=== PATIENT | male | born 1990 | race American Indian/Alaskan Native ===

== ENCOUNTER 2021-12-14 07:20 | Emergency (ER) | payer OTHER ==
[2021-12-14 08:36] LABS: Basophils % (Auto) 0.3 % (0.0-1.8); Eosinophils % (Auto) 0.6 % (0.0-4.3); Hematocrit 48.4 % (35.5-45.6); Hemoglobin 16.2 gm/dl (11.8-15.2); Lymphocytes # (Auto) 1.8 K/mm3 (1.2-5.4); Lymphocytes % (Auto) 21.9 % (13.4-35.0); Mean Corpuscular HGB Conc 34 % (32-34); Mean Corpuscular Volume 83 fl (84-94); Monocytes # (Auto) 0.7 K/mm3 (0.0-0.8); Monocytes % (Auto) 8.7 % (0.0-7.3); Platelet Count 207 K/mm3 (140-440); Red Blood Count 5.81 M/mm3 (3.65-5.03); Red Cell Distribution Width 13.3 % (13.2-15.2)
[2021-12-14 08:53] LABS: Alanine Aminotransferase 44 units/L (7-56); BUN/Creatinine Ratio 11; Blood Urea Nitrogen 14 mg/dL (9-20); Calcium 9.6 mg/dL (8.4-10.2); Hemolysis Index 19
[2021-12-14 09:04] LABS: Bilirubin,Urine NEG (Negative); Blood,Urine SM (Negative); Color,Urine Yellow (Yellow); Urobilinogen,Urine < 2.0 mg/dL (<2.0)
[2021-12-14 09:12] LABS: Mucus,Urine 1+ /HPF
--- NOTE | 2021-12-14 14:11 | Emergency Department Report ---
ED General Adult HPI - General Chief complaint: Abdominal Pain Stated complaint: AB PAIN/NAUSEA Time Seen by Provider: 12/14/21 13:39 Source: patient Mode of arrival: Ambulatory Limitations: No Limitations - History of Present Illness Initial comments: 31-year-old male patient presents with complaints of epigastric and right upper quadrant pain for the past 2 days. Pain is constant and moderate. He denies any vomiting but admits to nausea. No diarrhea/melena, fever/chills/sweats, cough, shortness of breath, or chest pain. Patient states he has been evaluated by his PCP for thyroid disease. He also states he was seen 1 week ago in the ED for anxiety and chest pain and states everything was normal at that time. Pain does not worsen with eating or drinking per patient. Nothing improves pain per patient Radiation: non-radiation Severity scale (0 -10): 6 Quality: aching - Related Data Previous Rx's Medication Instructions Recorded Last Taken Type Dicyclomine [Bentyl] 20 mg PO QID PRN #40 tablet 12/14/21 Unknown Rx Famotidine [Pepcid] 20 mg PO BID 10 Days #20 tablet 12/14/21 Unknown Rx Ondansetron [Zofran Odt] 4 mg PO Q8HR PRN #12 tab.rapdis 12/14/21 Unknown Rx Allergies Allergy/AdvReac Type Severity Reaction Status Date / Time tramadol Allergy Unknown Verified 12/14/21 08:03 ED Review of Systems ROS: Stated complaint: AB PAIN/NAUSEA Other details as noted in HPI Constitutional: denies: chills, fever Eyes: denies: eye pain, eye discharge, vision change ENT: denies: ear pain, throat pain Respiratory: denies: cough, shortness of breath, wheezing Cardiovascular: denies: chest pain, palpitations Endocrine: no symptoms reported Gastrointestinal: abdominal pain, nausea. denies: vomiting, diarrhea, constipation, hematemesis, melena, hematochezia Genitourinary: denies: urgency, dysuria Musculoskeletal: denies: back pain, joint swelling, arthralgia Skin: denies: rash, lesions Neurological: denies: headache, weakness, paresthesias Hematological/Lymphatic: denies: easy bleeding, easy bruising, swollen glands ED Past Medical Hx - Past Medical History Previous Medical History?: Yes Additional medical history: thyroid - Surgical History Past Surgical History?: No - Medications Home Medications: Home Medications Medication Instructions Recorded Confirmed Last Taken Type Dicyclomine [Bentyl] 20 mg PO QID PRN #40 tablet 12/14/21 Unknown Rx Famotidine [Pepcid] 20 mg PO BID 10 Days #20 tablet 12/14/21 Unknown Rx Ondansetron [Zofran Odt] 4 mg PO Q8HR PRN #12 tab.rapdis 12/14/21 Unknown Rx ED Physical Exam - General Limitations: No Limitations General appearance: alert, in no apparent distress - Head Head exam: Present: atraumatic, normocephalic - Eye Eye exam: Present: normal appearance. Absent: scleral icterus - Respiratory Respiratory exam: Present: normal lung sounds bilaterally. Absent: respiratory distress - Cardiovascular Cardiovascular Exam: Present: regular rate, normal rhythm - GI/Abdominal GI/Abdominal exam: Present: soft, tenderness (mild RUQ), normal bowel sounds. Absent: distended, guarding, rebound, rigid, diminished bowel sounds, organomegaly, mass - Extremities Exam Extremities exam: Present: normal inspection - Back Exam Back exam: Present: full ROM - Neurological Exam Neurological exam: Present: alert, oriented X3 - Psychiatric Psychiatric exam: Present: normal affect, normal mood - Skin Skin exam: Present: warm, dry, intact, normal color. Absent: rash ED Course Vital Signs 12/14/21 12/14/21 12/14/21 08:03 14:12 14:17 Temperature 98.7 F 98.8 F Pulse Rate 101 H 84 86 Respiratory 20 18 Rate Blood Pressure 153/99 Blood Pressure 142/100 [Right] O2 Sat by Pulse 96 100 Oximetry ED Medical Decision Making - Lab Data Result diagrams: 12/14/21 08:14 12/14/21 08:14 - Radiology Data Radiology results: report reviewed ULTRASOUND ABDOMEN, limited INDICATION / CLINICAL INFORMATION: ruq and epigastric. COMPARISON: None available. FINDINGS: PANCREAS: No significant abnormality. ABDOMINAL AORTA: No significant abnormality. IVC: No significant abnormality. LIVER: No significant abnormality. GALLBLADDER: No significant abnormality. BILE DUCTS: No significant abnormality. Common bile duct measures 1.8 mm. KIDNEYS: Right: No significant abnormality. FREE FLUID: None. ADDITIONAL FINDINGS: None. IMPRESSION: 1. No significant sonographic abnormality of the right abdomen. - Medical Decision Making 31-year-old male patient presents with complaints of epigastric and right upper quadrant pain for the past 2 days. Pain is constant and moderate. He denies any vomiting but admits to nausea. No diarrhea/melena, fever/chills/sweats, cough, shortness of breath, or chest pain. Patient states he has been evaluated by his PCP for thyroid disease. He also states he was seen 1 week ago in the ED for anxiety and chest pain and states everything was normal at that time. Pain does not worsen with eating or drinking per patient. Nothing improves pain per patient Ultrasound is negative for any acute abnormalities. CBC, CMP, and lipase are normal. No guarding or rebound of abdomen noted on exam. Will treat for gastritis and recommend follow-up with primary care within 1 week. Discussed signs and symptoms that should prompt immediate return to the ED with patient who verbalizes understanding. He is otherwise well-appearing, his vitals are stable, he is stable for discharge home Critical care attestation.: If time is entered above; I have spent that time in minutes in the direct care of this critically ill patient, excluding procedure time. ED Disposition Clinical Impression: Upper abdominal pain Disposition: 01 HOME / SELF CARE / HOMELESS Is pt being admited?: No Condition: Stable Instructions: Abdominal Pain, Adult, [id number], Gastritis, Adult, [id number] Prescriptions: Dicyclomine [Bentyl] 20 mg PO QID PRN #40 tablet PRN Reason: abdominal pain Famotidine [Pepcid] 20 mg PO BID 10 Days #20 tablet Ondansetron [Zofran Odt] 4 mg PO Q8HR PRN #12 tab.rapdis PRN Reason: Nausea Referrals: PRIMARY CARE, [Referring] - 3-5 Days
[2021-12-14 14:21] VITALS: BP 153/99
[2021-12-14] MEDS ORDERED: FAMOTIDINE 20 MG TAB PO ONE (15:11)
[2021-12-14] MEDS ORDERED: DICYCLOMINE 20 MG TAB PO ONE (15:11)
[2021-12-14] MEDS ORDERED: ONDANSETRON 4 MG ODT TAB PO ONE (15:11)
--- NOTE | 2021-12-14 15:23 | Ultrasound Report ---
ULTRASOUND ABDOMEN, limited INDICATION / CLINICAL INFORMATION: ruq and epigastric. COMPARISON: None available. FINDINGS: PANCREAS: No significant abnormality. ABDOMINAL AORTA: No significant abnormality. IVC: No significant abnormality. LIVER: No significant abnormality. GALLBLADDER: No significant abnormality. BILE DUCTS: No significant abnormality. Common bile duct measures 1.8 mm. KIDNEYS: Right: No significant abnormality. FREE FLUID: None. ADDITIONAL FINDINGS: None. IMPRESSION: 1. No significant sonographic abnormality of the right abdomen. Signer Name: Hernandez Martinez MD Signed: 12/14/2021 3:18 PM Workstation Name: [id number]
== END 2021-12-14 15:58 | disposition home or self-care (01) ==
LOC: ED 07:20
DX: R10.10 Upper abdominal pain, unspecified (principal); Z91.09 Other allergy status, other than to drugs and biological substances; Z79.899 Other long term (current) drug therapy
CPT/HCPCS: 36415; 76705; 80053; 81001; 83690; 85025; 99284; J3490; Q0162